=== PATIENT | female | born 1975 | race Two or more races ===

== ENCOUNTER 2018-01-08 16:37 | Emergency (ER) | payer OTHER ==
[~2018-01-08] VITALS: Ht 167.6 cm; Wt 172.4 kg
[~2018-01-08 16:37] MED LIST: LABETALOL HCL300 MG
== END 2018-01-08 21:13 | disposition home or self-care (01) ==
LOC: ER 16:37
DX: K52.89 Other specified noninfective gastroenteritis and colitis (principal); K43.9 Ventral hernia without obstruction or gangrene

== ENCOUNTER 2018-06-23 11:21 | Emergency (ER) | payer OTHER ==
[~2018-06-23] VITALS: Ht 167.6 cm; Wt 172.4 kg
== END 2018-06-23 16:08 | disposition home or self-care (01) ==
LOC: ER 11:21
DX: B34.9 Viral infection, unspecified (principal); N39.0 Urinary tract infection, site not specified; R82.79 Other abnormal findings on microbiological examination of urine

== ENCOUNTER → 2018-12-30 | Emergency (ER) | payer OTHER ==
[~2018-12-30] VITALS: Ht 167.6 cm; Wt 172.4 kg
== END | disposition left against medical advice (07) ==
LOC: ER 22:58
DX: R07.89 Other chest pain (principal); I10 Essential (primary) hypertension

== ENCOUNTER 2019-01-23 15:48 | Inpatient (IN) | payer OTHER ==
[~2019-01-23] VITALS: Ht 167.6 cm; Wt 181.4 kg
== END 2019-01-26 18:24 | disposition home or self-care (01) | DRG 293 ==
LOC: ER 15:48 → MEDJ 01-24 00:15
PROVIDERS: ADMIT Internal Medicine
PROC: 4A12X4Z Monitoring of Cardiac Electrical Activity, External Approach (ICD-10-PCS; principal; 2019-01-24)
PROC: B246ZZZ Ultrasonography of Right and Left Heart (ICD-10-PCS; 2019-01-24)
DX: I11.0 Hypertensive heart disease with heart failure (principal); I50.20 Unspecified systolic (congestive) heart failure; E66.01 Morbid (severe) obesity due to excess calories

== ENCOUNTER 2019-11-14 19:22 | Emergency (ER) | payer OTHER ==
[~2019-11-14] VITALS: Ht 167.6 cm; Wt 168.7 kg
[2019-11-14] MEDS ORDERED: COZAAR100 MG (19:47)
[2019-11-14] MEDS ORDERED: TOPROL XL50 M1 (19:47)
[2019-11-14] MEDS ORDERED: LASIX20 MG (19:48)
== END 2019-11-14 22:23 | disposition home or self-care (01) ==
LOC: ER 19:22
DX: S90.32XA Contusion of left foot, initial encounter (principal); W18.09XA Striking against other object with subsequent fall, initial encounter; Y93.89 Activity, other specified; Y92.89 Other specified places as the place of occurrence of the external cause; Y99.8 Other external cause status

== ENCOUNTER → 2020-06-09 | Emergency (ER) | payer OTHER ==
[~2020-06-09] VITALS: Ht 167.6 cm; Wt 172.4 kg
[~2020-06-09] MED LIST changes: +CARVEDILOL25 MG PO; +CARdura 2MG TABLET PO; +CLOTRIMAZOLE28 GM TOP; +COZAAR100 MG; +FUROSEMIDE40 MG PO; +HYDRALAZINE HCL50 MG PO; +LASIX20 MG; +LOSARTAN POTASS50 MG PO; +TOPROL XL50 M1
== END | disposition home or self-care (01) ==
LOC: ER 14:11
DX: J45.998 Other asthma (principal); Z03.818 Encounter for observation for suspected exposure to other biological agents ruled out

== ENCOUNTER 2020-07-06 16:39 | Inpatient (IN) | payer OTHER ==
[~2020-07-06 16:39] MED LIST changes: -CARVEDILOL25 MG PO; -CARdura 2MG TABLET PO; -CLOTRIMAZOLE28 GM TOP; -FUROSEMIDE40 MG PO; -HYDRALAZINE HCL50 MG PO; -LOSARTAN POTASS50 MG PO
[2020-07-12] MEDS ORDERED: CARdura 2MG TABLET PO (11:57)
[2020-07-12] MEDS ORDERED: HYDRALAZINE HCL50 MG PO (11:57)
[2020-07-12] MEDS ORDERED: LOSARTAN POTASS50 MG PO (11:57)
[2020-07-12] MEDS ORDERED: CARVEDILOL25 MG PO (11:57)
[2020-07-12] MEDS ORDERED: CLOTRIMAZOLE28 GM TOP (11:57)
[2020-07-12] MEDS ORDERED: FUROSEMIDE40 MG PO (11:57)
== END 2020-07-12 13:52 | disposition home or self-care (01) | DRG 291 ==
LOC: ER 16:39 → ICU-2 19:02 → ICU 07-07 22:33 → MEDI 07-10 21:48
PROVIDERS: ADMIT Internal Medicine; ATTEND Internal Medicine
PROC: B246ZZZ Ultrasonography of Right and Left Heart (ICD-10-PCS; 2020-07-06)
PROC: 4A033R1 Measurement of Arterial Saturation, Peripheral, Percutaneous Approach (ICD-10-PCS; 2020-07-06)
PROC: 3E0F7GC Introduction of Other Therapeutic Substance into Respiratory Tract, Via Natural or Artificial Opening (ICD-10-PCS; 2020-07-06)
PROC: B54DZZZ Ultrasonography of Bilateral Lower Extremity Veins (ICD-10-PCS; principal; 2020-07-07)
PROC: 4A12X4Z Monitoring of Cardiac Electrical Activity, External Approach (ICD-10-PCS; 2020-07-10)
DX: I11.0 Hypertensive heart disease with heart failure (principal); I50.31 Acute diastolic (congestive) heart failure; I50.21 Acute systolic (congestive) heart failure; I16.1 Hypertensive emergency; E66.01 Morbid (severe) obesity due to excess calories; I27.20 Pulmonary hypertension, unspecified; J45.909 Unspecified asthma, uncomplicated; R80.8 Other proteinuria; I87.2 Venous insufficiency (chronic) (peripheral); Z20.828 Contact with and (suspected) exposure to other viral communicable diseases

== ENCOUNTER 2021-03-19 19:13 | Emergency (ER) | payer OTHER ==
[~2021-03-19] VITALS: Ht 160 cm; Wt 181.4 kg
[~2021-03-19 19:13] MED LIST changes: +CARVEDILOL25 MG PO; +CARdura 2MG TABLET PO; +CLOTRIMAZOLE28 GM TOP; +FUROSEMIDE40 MG PO; +HYDRALAZINE HCL50 MG PO; +LOSARTAN POTASS50 MG PO
[2021-03-19] MEDS ORDERED: DOXAZOSIN MESYLA2 MG (19:21)
[2021-03-19] MEDS ORDERED: KETO10TA2 PO (21:49)
[2021-03-19] MEDS ORDERED: PEPCID AC20 MG PO (21:49)
== END 2021-03-19 22:03 | disposition home or self-care (01) ==
LOC: ER 19:13
DX: R10.32 Left lower quadrant pain (principal)

== ENCOUNTER 2021-04-02 14:03 | Emergency (ER) | payer OTHER ==
[~2021-04-02] VITALS: Ht 160 cm; Wt 162.4 kg
[~2021-04-02 14:03] MED LIST changes: +DOXAZOSIN MESYLA2 MG; +KETO10TA2 PO; +PEPCID AC20 MG PO
[2021-04-02] MEDS ORDERED: TUSNEL LIQUID178 ML PO (19:11)
[2021-04-02] MEDS ORDERED: XOPENEX0.63 MG/3 IH (19:11)
== END 2021-04-02 20:12 | disposition home or self-care (01) ==
LOC: ER 14:03
DX: J45.998 Other asthma (principal); R06.02 Shortness of breath; Z11.52 Encounter for screening for COVID-19

== ENCOUNTER 2021-05-22 22:44 | Inpatient (IN) | payer OTHER ==
[~2021-05-22] VITALS: Ht 160 cm; Wt 174.2 kg
[~2021-05-22 22:44] MED LIST changes: +TUSNEL LIQUID178 ML PO; +XOPENEX0.63 MG/3 IH
== END 2021-05-25 13:07 | disposition home or self-care (01) | DRG 305 ==
LOC: ER 22:44 → MEDJ 05-23 08:57 → SEC-K 05-23 08:57 → MEDI 05-23 16:49 → MEDJ 05-23 16:56
PROVIDERS: ADMIT Internal Medicine; ATTEND Internal Medicine
PROC: B24BYZZ Ultrasonography of Heart with Aorta using Other Contrast (ICD-10-PCS; principal; 2021-05-23)
PROC: 4A12X4Z Monitoring of Cardiac Electrical Activity, External Approach (ICD-10-PCS; 2021-05-23)
DX: I16.9 Hypertensive crisis, unspecified (principal); I11.0 Hypertensive heart disease with heart failure; I50.9 Heart failure, unspecified; E66.01 Morbid (severe) obesity due to excess calories; Z20.822 Contact with and (suspected) exposure to COVID-19

== ENCOUNTER 2021-06-03 09:45 | Inpatient (IN) | payer OTHER ==
[~2021-06-03] VITALS: Ht 160 cm; Wt 176.4 kg
[2021-06-03] MEDS ORDERED: LIPITOR40 M1 (10:20)
[2021-06-10] MEDS ORDERED: AMLODIPINE BESYL5 MG PO (13:32)
[2021-06-10] MEDS ORDERED: LORATADINE10 MG PO (13:32)
[2021-06-10] MEDS ORDERED: LIPITOR40 MG PO (13:32)
[2021-06-10] MEDS ORDERED: LOSARTAN POTAS100 MG PO (13:33)
[2021-06-10] MEDS ORDERED: FUROSEMIDE40 MG PO (13:33)
[2021-06-10] MEDS ORDERED: DOXAZOSIN MESYLA8 MG PO (13:33)
[2021-06-10] MEDS ORDERED: CARVEDILOL25 MG PO (13:33)
[2021-06-10] MEDS ORDERED: BENZONATATE100 MG PO (13:34)
[2021-06-10] MEDS ORDERED: VENTOLIN HFA18 GM IH (13:36)
[2021-06-10] MEDS ORDERED: TRELEGY ELLIPT1 EACH IH (13:36)
== END 2021-06-10 14:32 | disposition home or self-care (01) | DRG 292 ==
LOC: ER 09:45 → MEDI 17:57
PROVIDERS: ADMIT Internal Medicine; ATTEND Internal Medicine
PROC: 4A12X4Z Monitoring of Cardiac Electrical Activity, External Approach (ICD-10-PCS; principal; 2021-06-03)
PROC: 4A033R1 Measurement of Arterial Saturation, Peripheral, Percutaneous Approach (ICD-10-PCS; 2021-06-03)
PROC: 3E0F7SF Introduction of Other Gas into Respiratory Tract, Via Natural or Artificial Opening (ICD-10-PCS; 2021-06-03)
PROC: 3E0F7GC Introduction of Other Therapeutic Substance into Respiratory Tract, Via Natural or Artificial Opening (ICD-10-PCS; 2021-06-03)
PROC: 05H533Z Insertion of Infusion Device into Right Subclavian Vein, Percutaneous Approach (ICD-10-PCS; 2021-06-04)
DX: I50.9 Heart failure, unspecified (principal); I16.9 Hypertensive crisis, unspecified; J44.1 Chronic obstructive pulmonary disease with (acute) exacerbation; J45.901 Unspecified asthma with (acute) exacerbation; F17.210 Nicotine dependence, cigarettes, uncomplicated; E66.01 Morbid (severe) obesity due to excess calories; Z20.822 Contact with and (suspected) exposure to COVID-19; R06.02 Shortness of breath; R09.02 Hypoxemia

== ENCOUNTER 2021-12-25 19:00 | Emergency (ER) | payer OTHER ==
[~2021-12-25] VITALS: Ht 157.5 cm; Wt 180.1 kg
[~2021-12-25 19:00] MED LIST changes: +AMLODIPINE BESYL5 MG PO; +BENZONATATE100 MG PO; +DOXAZOSIN MESYLA8 MG PO; +LIPITOR40 M1; +LIPITOR40 MG PO; +LORATADINE10 MG PO; +LOSARTAN POTAS100 MG PO; +TRELEGY ELLIPT1 EACH IH; +VENTOLIN HFA18 GM IH
== END 2021-12-26 01:14 | disposition home or self-care (01) ==
LOC: ER 19:00
DX: J45.909 Unspecified asthma, uncomplicated (principal); I10 Essential (primary) hypertension; Z91.018 Allergy to other foods; Z91.013 Allergy to seafood

== ENCOUNTER 2022-05-12 11:45 | Inpatient (IN) | payer OTHER ==
[~2022-05-12] VITALS: Ht 152.4 cm; Wt 172.4 kg
[2022-05-12] MEDS ORDERED: SYMBICORT 16010.2 GM IH (11:54)
--- NOTE | 2022-05-12 11:55 | NUR ---
SE RECIBE PTE ALERTA Y ORIENTADA X3 QUIEN REFIERE DIFICULTAD PARA RESPIRAR Y NO ENCONTRAR JACOBO FORMA COMODA PARA RESPIRAR. PTE CON DX DE COPD. SE GAUTAM S/V Y SE UBICA.
--- NOTE | 2022-05-12 12:44 | NUR ---
PACIENTE EVALUDA POR DRA FELICIA [place] [facility] MS BURGOS LE ORIENTA A PACIENTE SOBRE EL MISMO Y REFIERE ENTENDER. SE CONECTA PACIENTE A MONITOR CARDIACO, SE LE COLOCA CANULA NASAL, LE COLECTA MUESTRAS DE LABORATORIO, LE CANALIZA Y LE COLOCA MORROW CATETER BAJO MEDIDAS ASEPTICAS. PENDIENTE PLACA PORTABLE. SE MANTIENE PACIENTE BAJO OBSERVACION POR CAMBIOS SIGNIFICATIVOS EN [place] MEDICO.
--- NOTE | 2022-05-12 14:15 | NUR ---
SE LLAMA A PERSONAL DE TERAPIA RESPIRATORIA Y SE NOTIFICA ABG PENDIENTE.
== END 2022-05-20 21:37 | disposition home or self-care (01) | DRG 291 ==
LOC: ER 11:45 → MEDI 20:19
PROVIDERS: ADMIT Internal Medicine; ATTEND Internal Medicine
PROC: B24BZZZ Ultrasonography of Heart with Aorta (ICD-10-PCS; principal; 2022-05-15)
PROC: 02HV33Z Insertion of Infusion Device into Superior Vena Cava, Percutaneous Approach (ICD-10-PCS; 2022-05-15)
DX: I11.0 Hypertensive heart disease with heart failure (principal); I50.23 Acute on chronic systolic (congestive) heart failure; J44.1 Chronic obstructive pulmonary disease with (acute) exacerbation; Z68.44 Body mass index [BMI] 60.0-69.9, adult; R09.02 Hypoxemia; Z20.822 Contact with and (suspected) exposure to COVID-19; E66.01 Morbid (severe) obesity due to excess calories; Z72.0 Tobacco use; E78.49 Other hyperlipidemia

== ENCOUNTER 2022-08-08 11:49 | Emergency (ER) | payer OTHER ==
[~2022-08-08] VITALS: Ht 157.5 cm; Wt 190.5 kg
[~2022-08-08 11:49] MED LIST changes: +SYMBICORT 16010.2 GM IH
== END 2022-08-08 17:24 | disposition home or self-care (01) ==
LOC: ER 11:49
DX: K12.1 Other forms of stomatitis (principal); K12.30 Oral mucositis (ulcerative), unspecified; Z91.018 Allergy to other foods; Z91.010 Allergy to peanuts

== ENCOUNTER 2022-10-20 16:20 | Inpatient (IN) | payer OTHER ==
[~2022-10-20] VITALS: Ht 175.3 cm; Wt 181.4 kg
--- NOTE | 2022-10-20 16:43 | NUR ---
SE RECIBE PTE FEMENINA ALERTA Y ORIENTADA EN LAS ROB ESFERAS REFIERE DIFICULTAD PARA RESPIRAR DESDE EL ANIRUDH DE HOY. PTE PRESENTA SATURACION DE O2 MANUAL AL 91%, INDICA SER PTE DE COPD. SE REALIZA EJG Y SE PRESENTA SHAYLEE A QUIEN ORDENA UBICAR PTE EN AREA DE CRITICO. SE UBICA PTE EN CAMA #3 DE UNIDAD DE CRITICO SE CONECTA A MONITOR CARDIACO Y OXIMETRAIA DE PULSO CONTINUA.
--- NOTE | 2022-10-20 17:25 | NUR ---
PTE FEMENINA ALERTA Y ORIENTADA EN LAS ROB ESFERAS ES EVALUADA POR . RN LIMA ORIENTA PTE SOBRE ORDENES DE [place] REFIERE COMPRENDER. COLECTA MUESTRAS DE LABORATORIOS Y CANALIZA VENA BAJO MEDIDAS ASEPTICAS. NOTIFICA A PERSONAL DE TERAPIA RESPIRATORIA ABGS DE PTE. JASON PTE EN CAMA NIVEL MAS BAJO CON BARANDAS ELEVADAS Y FRENOS COLOCADOS POR SEGURIDAD.
--- NOTE | 2022-10-20 18:44 | NUR ---
SE COLOCA MORROW A PTE UTILIZANDO MEDIDAS ASEPTICAS Y ESTERILES.
== END 2022-11-01 17:40 | disposition home or self-care (01) | DRG 291 ==
LOC: ER 16:20 → SEC-K 21:16 → MEDI 21:16 → SEC-K 21:24 → MEDI 10-21 16:40
PROVIDERS: ADMIT Internal Medicine; ATTEND Internal Medicine
PROC: B24BZZZ Ultrasonography of Heart with Aorta (ICD-10-PCS; principal; 2022-10-20)
PROC: 02HV33Z Insertion of Infusion Device into Superior Vena Cava, Percutaneous Approach (ICD-10-PCS; 2022-10-21)
PROC: 4A12X4Z Monitoring of Cardiac Electrical Activity, External Approach (ICD-10-PCS; 2022-10-22)
DX: I11.0 Hypertensive heart disease with heart failure (principal); I50.23 Acute on chronic systolic (congestive) heart failure; J44.1 Chronic obstructive pulmonary disease with (acute) exacerbation; I16.9 Hypertensive crisis, unspecified; Z68.43 Body mass index [BMI] 50.0-59.9, adult; E66.01 Morbid (severe) obesity due to excess calories; G47.33 Obstructive sleep apnea (adult) (pediatric); R06.02 Shortness of breath; R09.02 Hypoxemia; R06.89 Other abnormalities of breathing; Z20.822 Contact with and (suspected) exposure to COVID-19; F17.200 Nicotine dependence, unspecified, uncomplicated

== ENCOUNTER 2023-01-17 14:03 | Inpatient (IN) | payer OTHER ==
[~2023-01-17] VITALS: Ht 157.5 cm; Wt 181.4 kg
== END 2023-01-23 12:19 | disposition home or self-care (01) | DRG 291 ==
LOC: ER 14:03 → MEDJ 22:53 → MEDI 22:53 → MEDJ 23:02
PROVIDERS: ADMIT Internal Medicine; ATTEND Internal Medicine
PROC: B24BYZZ Ultrasonography of Heart with Aorta using Other Contrast (ICD-10-PCS; principal; 2023-01-21)
DX: I50.9 Heart failure, unspecified (principal); J96.01 Acute respiratory failure with hypoxia; Z68.45 Body mass index [BMI] 70 or greater, adult; R60.9 Edema, unspecified; E66.01 Morbid (severe) obesity due to excess calories

== ENCOUNTER 2023-10-02 11:16 | Emergency (ER) | payer OTHER ==
[~2023-10-02] VITALS: Ht 157.5 cm; Wt 219.1 kg
[2023-10-02] MEDS ORDERED: AMLODIPINE-OLM1 EAC2 PO (11:59)
[2023-10-02 12:42] LABS: HEMATOCRIT 38.7 % (36.0-45.00); HEMOGLOBIN 12.8 g/dL (12.0-15.00); MEAN CELL VOLUME 84.2 fL (80.00-100.00); MEAN CORPUSCULAR HEMOGLOBIN 27.9 pg (27.00-32.0); MEAN CORPUSCULAR HGB CONC 33.1 g/dl (32.0-36.0); PLATELET COUNT 211 K/uL (150-450); RED BLOOD COUNT 4.59 M/uL (4.00-6.00); RED CELL DISTRIBUTION WIDTH 16.5 % (11.5-14.5)
[2023-10-02 12:59] LABS: CALCIUM 8.8 mg/dL (8.5-10.1); CREATININE SERUM 0.71 mg/dL (0.55-1.02); GFR 88.24; POTASSIUM 4.06 mEq/L (3.5-5.1)
[2023-10-02 13:29] LABS: URINE APPEARANCE Clear; URINE BILIRRUBIN Negative (NEGATIVE); URINE BLOOD Large; URINE COLOR Yellow; URINE GLUCOSE Negative (NEGATIVE); URINE LEUKOCYTE Negative; URINE NITRATE Negative; URINE PROTEIN Trace (NEGATIVE); URINE UROBILINOGEN 0.2 E.U./dl
[2023-10-02 13:33] LABS: URINE BACTERIA 1603.9 uL (0.0-1933); URINE EPITHELIAL CELLS 13.2 uL (0.0-38.8); URINE RBC 19.4 uL (0.0-20.8); URINE WBC 21.1 uL (0.0-23.2)
== END 2023-10-02 16:30 | disposition home or self-care (01) ==
LOC: ER 11:17
PROVIDERS: Emergency Medicine
DX: K52.89 Other specified noninfective gastroenteritis and colitis (principal); Z91.018 Allergy to other foods; Z91.013 Allergy to seafood

== ENCOUNTER 2023-10-19 04:46 | Emergency (ER) | payer OTHER ==
[~2023-10-19] VITALS: Ht 157.5 cm; Wt 217.7 kg
[~2023-10-19 04:46] MED LIST changes: +AMLODIPINE-OLM1 EAC2 PO
[2023-10-19 06:32] LABS: HEMOGLOBIN 13.6 g/dL (12.0-15.00); MEAN CELL VOLUME 84.4 fL (80.00-100.00); MEAN CORPUSCULAR HEMOGLOBIN 28.7 pg (27.00-32.0); MEAN CORPUSCULAR HGB CONC 34.1 g/dl (32.0-36.0); PLATELET COUNT 237 K/uL (150-450); RED BLOOD COUNT 4.74 M/uL (4.00-6.00); RED CELL DISTRIBUTION WIDTH 15.8 % (11.5-14.5)
[2023-10-19 06:38] LABS: ALBUMIN 3.6 gm/dL (3.4-5.0); BILIRUBIN TOTAL 1.38 mg/dL (0.3-1.2); CALCIUM 9.1 mg/dL (8.5-10.1); CREATININE SERUM 0.72 mg/dL (0.55-1.02); GFR 86.82; GLOBULINA 3.8 G/DL (2.4-3.5); POTASSIUM 3.5 mEq/L (3.5-5.1); TOTAL PROTEIN 7.4 gm/dL (6.4-8.2)
== END 2023-10-19 07:29 | disposition home or self-care (01) ==
LOC: ER 04:46
DX: K29.70 Gastritis, unspecified, without bleeding (principal); K21.9 Gastro-esophageal reflux disease without esophagitis; Z91.013 Allergy to seafood; Z91.018 Allergy to other foods

== ENCOUNTER 2023-10-21 21:23 | Emergency (ER) | payer OTHER ==
[~2023-10-21] VITALS: Ht 157.5 cm; Wt 208.7 kg
[2023-10-22 00:40] LABS: HEMATOCRIT 40.5 % (36.0-45.00); HEMOGLOBIN 13.4 g/dL (12.0-15.00); MEAN CELL VOLUME 84.7 fL (80.00-100.00); MEAN CORPUSCULAR HEMOGLOBIN 28.1 pg (27.00-32.0); MEAN CORPUSCULAR HGB CONC 33.2 g/dl (32.0-36.0); PLATELET COUNT 233 K/uL (150-450); RED BLOOD COUNT 4.79 M/uL (4.00-6.00); RED CELL DISTRIBUTION WIDTH 15.8 % (11.5-14.5)
[2023-10-22 01:02] LABS: CALCIUM 8.6 mg/dL (8.5-10.1); CREATININE SERUM 0.69 mg/dL (0.55-1.02); GFR 91.19; POTASSIUM 3.34 mEq/L (3.5-5.1)
[2023-10-22] MEDS ORDERED: LEVSIN/SL0.125 MG SL (05:09)
[2023-10-22] MEDS ORDERED: PEPCID40 MG PO ×3 (05:10)
== END 2023-10-22 05:25 | disposition home or self-care (01) ==
LOC: ER 21:24
PROVIDERS: Emergency Medicine
DX: K29.70 Gastritis, unspecified, without bleeding (principal); K80.20 Calculus of gallbladder without cholecystitis without obstruction; R16.0 Hepatomegaly, not elsewhere classified; K76.0 Fatty (change of) liver, not elsewhere classified; K46.9 Unspecified abdominal hernia without obstruction or gangrene; I10 Essential (primary) hypertension; Z87.09 Personal history of other diseases of the respiratory system; Z91.018 Allergy to other foods; Z91.013 Allergy to seafood